=== PATIENT | female | born 1965 | race Caucasian/White ===

== ENCOUNTER 2023-07-07 13:21 | Outpatient (CLI) | payer BC, SELFPAY ==
--- NOTE | ~2023-07-07 | MR_ITS ---
EXAMINATION: MR ankle LT wo/w con DATE: 07/07/2023 14:33 INDICATION: Left ankle lump. TECHNIQUE: Magnetic resonance imaging (MRI) of the left ankle was performed without and with 20 mL Mu ltiHance intravenous contrast. COMPARISON: None. FINDINGS: Bone alignment is normal. No fracture. There is mild midfoot osteoarthritis. There are miller ges of old medial and lateral ankle sprains. There is plantar fasciitis characterized by thickening a nd increased signal involving the central band. There is an enthesophyte at the calcaneal attachment. The medial ankle tendons, peroneal tendons, and Achilles tendon are normal. There is a complete tear of the tibialis anterior tendon. A skin marker overlies the enlarged end of the torn tendon. IMPRESSION: 1. Complete tear of the tibialis anterior tendon correlating with the patient's area of concern. 2. Plantar fasciitis. Reviewed, dictated and finalized at location E.
== END 2023-07-07 13:22 ==
LOC: MICIMG 13:23
PROVIDERS: PCP Podiatrist Foot & Ankle Surgery; Visit Provider Podiatrist Foot & Ankle Surgery
DX: M72.2 Plantar fascial fibromatosis (principal); S86.812A Strain of other muscle(s) and tendon(s) at lower leg level, left leg, initial encounter; X58.XXXA Exposure to other specified factors, initial encounter
CPT/HCPCS: 73723; A9577